=== PATIENT | male | born 1960 | race Caucasian/White ===

== ENCOUNTER → 2020-01-08 16:30 | Outpatient (CLI) | payer SELFPAY | END | disposition home or self-care (01) | LOC: D.LABREF 16:30 | PROVIDERS: ATTEND Orthopaedic Surgery | DX: M17.12 Unilateral primary osteoarthritis, left knee (principal) ==

== ENCOUNTER 2020-01-10 15:45 | Inpatient (IN) | payer BC ==
[~2020-01-10] VITALS: Ht 182.9 cm; Wt 113.6 kg
[2020-01-28] MEDS ORDERED: IMITREX100 MG PO (15:33)
[2020-01-28] MEDS ORDERED: BISOPROLOL-HCT1 EACH PO (15:33)
[2020-01-28] MEDS ORDERED: FLOMAX0.4 MG PO (15:34)
[2020-01-29 10:02] LABS: BASOPHILS 0.2 % (0-2); EOSINOPHILS 1.8 % (0-7); HEMATOCRIT 42.3 % (42.0-54.0); HEMOGLOBIN 13.6 g/dL (13.5-17.5); IMMATURE GRANULOCYTES 0.2 % (0-5); LYMPHOCYTES 22.7 % (15-50); MCH 31.2 pg (26.0-34.0); MCHC 32.2 g/dL (31.0-37.0); MEAN PLATELET VOLUME 9.1 fL (7.4-10.4); NEUTROPHILS 64.1 % (40-80); PLATELET COUNT 183 10x3/uL (130-400); RBC 4.36 10x6/uL (4.20-6.10); RDW 13.1 % (11.5-14.5); WBC 5.1 10x3/uL (4.8-10.8)
[2020-01-29 10:11] LABS: ANION GAP 9.2 mmol/L (8-16); CALCIUM 8.7 mg/dL (8.5-10.1); CARBON DIOXIDE 30.8 mmol/L (21.0-32.0); CREATININE - SERUM 1.2 mg/dL (0.6-1.3)
[2020-01-29 10:14] LABS: APTT 29.1 SECONDS (22.8-39.4); INR 0.97 (0.85-1.17); PROTIME 12.8 SECONDS (11.6-15.0)
[2020-01-29 12:03] LABS: BACTERIA FEW /hpf (NEGATIVE); BILIRUBIN NEGATIVE (NEGATIVE); EPITHELIAL CELLS OCC /hpf (0-5); GLUCOSE NEGATIVE (NEGATIVE); KETONE NEGATIVE (NEGATIVE); NITRITE NEGATIVE (NEGATIVE); RED CELLS - URINE RARE /hpf (0-5); SPECIFIC GRAVITY 1.005 (1.005-1.020); UROBILINOGEN NORMAL (NORMAL); WHITE CELLS - URINE 0-5 /hpf (NEGATIVE)
[2020-02-04] VITALS (12 sets, daily range): BP systolic 101–128; BP diastolic 46–78; Ht 182.9 cm; Wt 113.6 kg
--- NOTE | 2020-02-04 10:50 | NUR ---
PT SITTING UP IN BED. ORIENTATED X4. DROWSY FROM PAIN MEDS GIVEN IN PACU. ABLE TO ANSWER QUESTIONS SLOWLY. PT DENIES ANY PAIN. PT O2 SAT WAS LOW, PLACED ON 2L NC AND THEN ADJUSTED TO 4L NC. CONTACTED RESPIRATORY FOR CONSULT. PT O2 SAT 98 NOW.
--- NOTE | 2020-02-04 13:50 | NUR ---
PT SITTING UP IN BED. ORIETATED X4. SLIGHTLY DROWSY. PT ASKED FOR URINAL, PROVIDED. PT REFUSED LUNCH, STATED HE FELT NAUSEOUS FROM PAIN MEDS. EXPLAINED AND PROVIDED PT WITH ISP, PT EXHALED 2000. BED LOW. BED RAILS X2. PT DENIES FURTHER NEEDS. CL IN REACH, PT VERBALIZED UNDERSTANDING.
--- NOTE | 2020-02-04 18:29 | NUR ---
PT A&O X4. DENIES PAIN. PLACED LEFT LEG IN CPM MACHIENE AT 1830, 45 DEGREES. PT TOLERATED WELL. BED LOW X 2 RAILS. CL IN REACH. WILL CONTINUE TO MONITOR. REPORTED TO NAVAL SURFACE FIRE SUPPORT PLANNER THAT CPM MACHIENE NEEDS TO BE D/C AT 2130.
--- NOTE | 2020-02-04 20:57 | MORECARE ---
CASE MANAGEMENT DISCHARGE SUMMARY PATIENT: BRITTANY ALVAREZ UNIT: [id number] ADM DATE: 02/04/20 AGE: 59 : 62 SEX: M ROOM/BED: D.1207 AUTHOR: ROHITH NIEVES PHYSICIAN: REFERRING PHYSICIAN: ROLA BOYD DO DATE OF SERVICE: 02/04/20 Discharge Plan Patient Name: BRITTANY ALVAREZ Facility: [facility] : 1960 Planned Disposition: Home Anticipated Discharge Date: Discharge Date: Expected LOS: Initial Reviewer: [email or web address] Initial Review Date: 02/04/2020 Generated: 02/04/20 9:57 pm DCPIA - Discharge Planning Initial Assessment Updated by BAL: Kim Crum on 02/04/20 8:56 pm * Is the patient Alert and Oriented? Yes * How many steps to enter\exit or inside your home? * PCP TAMAR * Pharmacy [facility] * Preadmission Environment Home with Family * ADLs Independent * Other Equipment CPAP, CPM, WALKER * List name and contact numbers for known caregivers / representatives who currently or will assist patient after discharge: JUSTINE ALVAREZ -- [phone] * Verbal permission to speak to the caregivers and representatives has been obtained from the patient. Yes * Community resources currently utilized None * Additional services required to return to the preadmission environment? No * Can the patient safely return to the preadmission environment? Yes * Has this patient been hospitalized within the prior 30 days at any hospital? No Coverage Notice Reviewer: [id number] - Kim Crum Notice Issued Date-Time: 02/04/2020 20:51 Notice Type: Patient Choice Letter Notice Delivered To: Family Member Relationship to Patient: Spouse Pile Driving Supervisor Name: JUSTINE ALVAREZ Delivery Method: HAND - Hand Delivered Nanci Days: Prior Verbal Notification: Recipient Understood Notice: Yes Recipient Signature: Yes Med Rec Note Co-signed by Attending: Coverage Notice Comment: [facility] ) FOR OUTPATIENT THERAPY [phone] Patient Name: BRITTANY ALVAREZ Page [phone] at 2057 All edits/amendments must be made on the electronic document DICTATION DATE: 02/04/202056 BEREAVEMENT PROGRAM COORDINATOR: LITTLE 02/04/202056 RPT#: [id number] DC DATE: STATUS: ADM IN [facility] [address] [place] [address] END OF REPORT
--- NOTE | 2020-02-04 21:00 | NUR ---
INTRODUCED SELF TO PT AND LET HIM KNOW THAT I WOULD BE HIS NURSE THIS SHIFT. VS TAKEN. LET HIM KNOW THAT I WOULD BE BACK LATER TO DO AN ASSESSMENT AND TO GIVE MEDS.
--- NOTE | 2020-02-04 21:04 | MORECARE ---
CASE MANAGEMENT DISCHARGE SUMMARY PATIENT: BRITTANY ALVAREZ UNIT: [id number] ADM DATE: 02/04/20 AGE: 59 : 62 SEX: M ROOM/BED: D.1207 AUTHOR: LIZBETH,DOC PHYSICIAN: REFERRING PHYSICIAN: ROLA BOYD DO DATE OF SERVICE: 02/04/20 Discharge Plan Patient Name: BRITTANY ALVAREZ Facility: [facility]:[place] : 1960 Planned Disposition: Home Anticipated Discharge Date: Discharge Date: Expected LOS: Initial Reviewer: [email or web address] Initial Review Date: 02/04/2020 Generated: 02/04/20 10:03 pm Comments DCP- Discharge Planning Updated by [id number]: Kim Crum on 02/04/20 8:[address] Patient Name: BRITTANY ALVAREZ Admission Status: Elective Accout number: [id number] Admission Date: 02-04-2020 : 1960 Admission Diagnosis: Attending: ROLA BOYD Current LOS: 1 Anticipated DC Date: Planned Disposition: Home Primary Insurance: [employer] TRUE BLUE PPO Discharge Planning Comments: CM met with patient to complete initial dc planning assessment. CM educated patient on the CM role and verbal consent given by patient to complete assessment. Patient lives at home with family. Patient is independent. At discharge patient plans to return home and feels this is a safe discharge. CM discussed availability of home health, rehab services, and medical equipment. Patient's spouse stated that they have the CPM and walker delivered. She stated that they would like to go to [facility] for outpatient therapy [phone]. Patient will have family to transport home. Patient denied known discharge needs at this time. CM will continue to follow and will assist as needed with dc plans/needs. Distribution Center Associate: Kim Crum DCPIA - Discharge Planning Initial Assessment Updated by [email or web address]: Kim Crum on 02/04/20 8:56 pm * Is the patient Alert and Oriented? Yes * How many steps to enter\exit or inside your home? * PCP TAMAR * Pharmacy [facility] * Preadmission Environment Home with Family * ADLs Independent * Other Equipment CPAP, CPM, WALKER * List name and contact numbers for known caregivers / representatives who currently or will assist patient after discharge: JUSTINE ALVAREZ -- [phone] * Verbal permission to speak to the caregivers and representatives has been obtained from the patient. Yes * Community resources currently utilized None * Additional services required to return to the preadmission environment? No * Can the patient safely return to the preadmission environment? Yes * Has this patient been hospitalized within the prior 30 days at any hospital? No Coverage Notice Reviewer: [id number] Sharonda Crum Notice Issued Date-Time: 02/04/2020 20:51 Notice Type: Patient Choice Letter Notice Delivered To: Family Member Relationship to Patient: Spouse Strip Presser Name: JUSTINE ALVAREZ Delivery Method: HAND - Hand Delivered Nanci Days: Prior Verbal Notification: Recipient Understood Notice: Yes Recipient Signature: Yes Med Rec Note Co-signed by Attending: Coverage Notice Comment: [facility] ([facility] ) FOR OUTPATIENT THERAPY [phone] Last DP export: 02/04/20 7:57 p Patient Name: BRITTANY ALVAREZ Page [phone] at 2104 All edits/amendments must be made on the electronic document DICTATION DATE: 02/04/202102 BRIDGE OPERATOR SLIP: LITTLE 02/04/202102 RPT#: [id number] DC DATE: STATUS: ADM IN [facility] [address] [place] [address] END OF REPORT
--- NOTE | 2020-02-04 22:00 | NUR ---
ASSESSMENT COMPLETED. PT LEFT KNEE IS WRAPPED IN AN SHANNAN WRAP. NO DRAINAGE NOTED. PT TOES ARE WARM AND HE CAN MOVE THEM. PT HEART SOUNDS ARE WNL. LUNGS SOUND CLEAR. PT IS WEARING O2. I OFFERED TO TAKE IT OFF AND CHECK A PULSE OX BUT HE STATES HE LIKES WEARING THE O2. PT HAS HAD PAIN MEDS DUE TO FEELING BEGINNING TO COME BACK TO HIS LEG. WHEN HE NEEDS MORE PAIN MEDS HE KNOWS TO ASK. CALL LIGHT IS WITHIN REACH. URINAL IS ON THE BEDSIDE TABLE. PT IS USING HIS IS WITH ENCOURAGEMENT.
--- NOTE | 2020-02-04 23:00 | NUR ---
CHECKED ON PT. HE WANTED HIS URINAL EMPTIED AND RINSED OUT. THIS WAS DONE. HE ASKED IF I WOULD HAND HIM THE MASK OF HIS BIPAP AND THIS WAS DONE. HE STATES HE'S READY TO GO TO SLEEP NOW.
--- NOTE | 2020-02-05 00:20 | NUR ---
PT IS RESTING WELL WITH NO C/P HE TOLD ME HIS PAIN LEVEL WAS A ONE. HE KNOWS TO CALL IF HE NEED MORE MEDS. CALL LIGHT WITHIN REACH, URINAL IN REACH, SIDERAILS X2 ELEVATED.
--- NOTE | 2020-02-05 02:00 | NUR ---
PT RESTING WELL IN BED. BIPAP STILL IN PLACE. RESPIRATIONS EVEN AND UNLABORED. O2 STILL IN PLACE. NO C/O OR NEEDS AT THIS JORGE
[2020-02-05 04:00] VITALS: BP 125/66
--- NOTE | 2020-02-05 06:00 | NUR ---
PT IS ON THE CPM. HE WAS MEDICATED BEFORE THE MACHINE WAS ON. HE IS TOLERATING CPM WELL.
--- NOTE | 2020-02-05 06:30 | OP ---
PATIENT NAME: BRITTANY ALVAREZ MEDICAL RECORD: [id number] :62 LOCATION:D. D.1207 ADMISSION DATE:02/04/20 SURGEON: SEBASTIÁN BOYD DO DATE OF OPERATION: 02/04/2020 PROCEDURE PERFORMED: Left total knee arthroplasty. PREOPERATIVE DIAGNOSIS: Left knee osteoarthritis. POSTOPERATIVE DIAGNOSIS: Left knee osteoarthritis. INDICATIONS: Mr. Alvarez patient is a 59-year-old male who has had all manner of nonoperative treatment for his left knee including injections, even PRP injections, to no avail. They did work for a little while, but did not get the lasting effect of them. He came to me and was aware of the risks of getting a total knee, but wanted it done. He is aware of the risks of infection, bleeding, damage to nerves and vessels, need for further surgery, continued pain, blood clots, arthrofibrosis, fracture, failure of implants and even and he signed the consent. SURGEON: Sebastián Boyd DO DESCRIPTION OF PROCEDURE: The patient received block by anesthesia in the preoperative area and taken to the operative suite, laid in supine position, general anesthetic and LMA was placed. He was given 2 grams Ancef, 80 mg of gentamicin and a gram of TXA. The left lower extremity was then prepped and draped in sterile fashion. A timeout was performed and everyone was in agreement with correct site, side, patient, procedure, then marked out the incision and covered in Ioban. We then used a 10 blade scalpel and made careful dissection down to the capsule of the knee and did a medial parapatellar approach through the knee then. We then removed part of the fat pad and milled down the patella. Any bleeding was coagulated with Aquamantys throughout the procedure. Then, once the free fat pad was removed and the patella was milled down. We then flexed the femur into the femoral canal and used the cutting guide for the distal femur. Distal femur was then cut. Proximal tibia was then exposed and cut as well and this was removed, the menisci removed as well. With the knee in extension, the medial one and lateral one was flexed and fit in the 10 extension block fit well. The pins were then removed from the tibia and held the tibial cutting block. Once that was removed, knee was flexed up and the femur sized to be 72.5. A 4-in-1 cutting block was then placed and kari wing was used to ensure there was no notching and then a 4-in-1 cutting block was used to cut the femur, the chamfer cuts and the anterior and posterior cuts. I then placed the trial on and floated in the tibial tray and ranged it. Once we range it, rotation was marked and after the rotation was marked, we drilled for the patellar holes through the guide and the lug holes on the femur. Once the femur was drilled, the tibia was exposed and reamed and punched and external holes put on the tibia with a special tool for the cement. Cement was then mixed and placed in the tibia and on the implants and packed into place. Excess cement was removed. The femur was then impacted on and 10 poly was put in between and brought to extension and then the patella was cleaned out and cement was placed in patella and on the patellar implant. This was squeezed into place. Excess cement was removed from that and the tibia and then the 10% povidone-iodine was used with 500 mL of normal saline solution placed in the knee and set for 3 minutes. It was then irrigated out with over a liter of normal saline. The cement had dried at that point and then we trialed a 12 OPERATIVE REPORT [id number] BRITTANY ALVAREZ poly, 12 poly fit well. We decided to go with a 12 anterior stabilized E-poly. This was put in and locked into place with the locking pin and then irrigated the knee one more time and put in Esther and vancomycin powder. The capsule was then closed with #2 Ethibond in [id number]-mu-aryrs fashion at 4 different spots and then Stravix was used to run a closure on the capsule. 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 So used 2-0 Monocryl in inverted interrupted fashion. Skin and the capsule were closed. Toribio Hunt, certified surgical instrument maker, and Blake Mullen, surgical nurse first aid student. The skin was then closed with 2-0 Monocryl in inverted interrupted fashion, 4-0 Monocryl around the skin and a ZipLine placed on that. He was then dressed with Adaptic, 4 x 4s, ABD, Webril, Jericho wrap and AKIL hose stocking, placed up to the knee. He was then awakened and taken to recovery in stable condition. Blood loss was approximately 200 mL. COMPLICATIONS: None. TRANSINT:[id number] Voice Confirmation ID: [id number] DOCUMENT ID: [id number] SEBASTIÁN BOYD DO at 0630 CC: [id number] DICTATION DATE: 02/04/20941 REFINING MACHINE OPERATOR: 02/04/202056 ADM IN [facility] [id number] [place] [address]
[2020-02-05 08:02] VITALS: BP 120/67
[2020-02-05 08:11] LABS: BASOPHILS 0 % (0-2); EOSINOPHILS 0.3 % (0-7); HEMATOCRIT 33.8 % (42.0-54.0); HEMOGLOBIN 10.7 g/dL (13.5-17.5); IMMATURE GRANULOCYTES 0.2 % (0-5); MCH 30.6 pg (26.0-34.0); MCHC 31.7 g/dL (31.0-37.0); MCV 96.6 fL (80.0-100.0); MEAN PLATELET VOLUME 9.7 fL (7.4-10.4); NEUTROPHILS 75.5 % (40-80); PLATELET COUNT 178 10x3/uL (130-400); RDW 13.6 % (11.5-14.5)
--- NOTE | 2020-02-05 08:15 | NUR ---
PT A&O X 4, SITTING UP IN BED. DENIES PAIN. PIV IN RIGHT HAND, PATENT, INFUSING 1/2 NS @ 50. PT HAS SCD ON RIGHT LEG. LEFT LEG IN CPM MACIENE. REMOVED, DRESSING DRY AND INTACT. EDUCATED PT THAT CPM IS ONLY USED TWICE DAILY FOR 3 HOURS. PT REQUESTED WATER AND COFFE, PROVIDED. PT DENIES FURTHER NEEDS. EDUCATED COLOR CORRECTOR LIGHT. BED LOW RAILS X2. PT VERBALIZED UNDERSTANDING. WILL CONTINUE TO MONITOR.
[2020-02-05 08:31] LABS: ALBUMIN 3.1 g/dL (3.4-5.0); ANION GAP 11.7 mmol/L (8-16); BILIRUBIN - TOTAL 0.38 mg/dL (0.2-1.3); CALCIUM 8.3 mg/dL (8.5-10.1); CARBON DIOXIDE 25.7 mmol/L (21.0-32.0); CREATININE - SERUM 1.1 mg/dL (0.6-1.3); POTASSIUM - SERUM 4.4 mmol/L (3.5-5.1); PROTEIN - SERUM 5.7 g/dL (6.4-8.2)
--- NOTE | 2020-02-05 11:15 | NUR ---
PT SITTING IN BED A&O. C/O PAIN 03/23, ADMIN PAIN MEDS. PT C/O REACTION TO MORNING MEDS, REDNESS IN FACE, ADMINISTERED BENEDRYL PER ORDERS. BED LOW, RAILS X2. CL IN REACH. WILL CONTINUE TO MONITOR.
--- NOTE | 2020-02-05 12:10 | NUR ---
PT SITTING UP IN CHAIR A&O. PT STATES PAIN AT /10. PT AMBULATED 135FT WITH WALKER. O2 SAT STAYED ABOVE 97%. TURNED O2 NC DOWN TO 2L, PT TOLERATED WELL, SATS ABOVE 97%. EDUCATED PT ABOUT NEED FOR URINE SAMPLE, COLLECTED. EDUCATED PT ON CONTINUING USE OF ISP. PT DENIES NEEDS. BED LOW, RAILS X2, WILL CONTINUE TO MONITOR.
[2020-02-05 13:40] LABS: BILIRUBIN NEGATIVE (NEGATIVE); GLUCOSE NEGATIVE (NEGATIVE); KETONE NEGATIVE (NEGATIVE); NITRITE NEGATIVE (NEGATIVE); UROBILINOGEN NORMAL (NORMAL)
--- NOTE | 2020-02-05 14:30 | NUR ---
PT SITTING IN CHAIR. C/O PAIN 02/20. PROVIDED PAIN MEDS. PT DECLINED WALKING WITH PHYSICAL THERAPY UNTIL PAIN UNDER CONTROL. TRANSFERRED PT TO BED. BED LOW RAILS X2. DENIES NEEDS. CL IN REACH. WILL CONTINUE TO MONITOR.
[2020-02-05 16:00] VITALS: BP 124/56
--- NOTE | 2020-02-05 18:53 | NUR ---
PT SITTING UP IN BED. PAIN REPORTED AT 3/10. PT REQUESTED TO WALK. PT WALKED 150FT WITH WALKER. PT TOLERATED WELL. AFTER AMBULATION PT PLACED ON CPM. PT DENIES FURTHER NEEDS. BED LOW, RAILS X2. CL IN REACH. WILL CONTINUE TO MONITOR.
[2020-02-05 20:00] VITALS: BP 116/67
--- NOTE | 2020-02-05 21:09 | NUR ---
PT SITTING UP IN BED A&O X4. REMOVED CPM FROM LEFT LEG. PT C/O PAIN 01/21. ADMIN PAIN MEDS PER ORDER. PT DENIES FURTHER NEEDS. BED LOW, RAILS X2. CL IN REACH. PT VERBALIZED UNDERSTANDING. WILL CONTINUE TO MONITOR.
[2020-02-06 04:00] VITALS: BP 123/69
--- NOTE | 2020-02-06 07:08 | NUR ---
PT IS RESTING IN BED WITH EYES OPEN. RESPIRATIONS ARE EVEN AND UNLABORED. PT IS AAO X 4. CPM IS ON TO LEFT KNEE AND WORKING WITHOUT DIFFICULTY. DRESSING TO LEFT KNEE NOTED AND IS CDI. RIGHT HAND PIV NOTED AND FLUSHES WITHOUT DIFFICULTY. PT DENIES PRESENCE OF NUMBNESS/TINGLING TO LLE. CAP REFILL IS < 3 SECONDS. PT DENIES PRESENCE OF N/V AT THIS TIME. INCENTIVE SPIROMETER AT BEDSIDE AND ENCOURAGED. PT VERBALIZES UNDERSTANDING. BED IS IN THE LOWEST POSITION. CALL LIGHT AND BEDSIDE TABLE ARE WITHIN REACH. SIDE RAILS X 2. PT DENIES FURTHER NEEDS. WILL CONT TO MONITOR.
[2020-02-06] MEDS ORDERED: VISTARIL50 MG PO (07:09)
[2020-02-06] MEDS ORDERED: ELIQUIS2.5 MG PO (07:09)
[2020-02-06] MEDS ORDERED: KEFLEX500 MG PO (07:09)
[2020-02-06] MEDS ORDERED: oxyCODONE IR PO (07:09)
[2020-02-06 07:42] LABS: CALC OSMOLALITY 270 mosm/kg (275-300); CALCIUM 7.9 mg/dL (8.5-10.1); CARBON DIOXIDE 28.1 mmol/L (21.0-32.0); CHLORIDE - SERUM 102 mmol/L (98-107); CREATININE - SERUM 0.9 mg/dL (0.6-1.3); GLUCOSE 117 mg/dL (74-106); POTASSIUM - SERUM 4.1 mmol/L (3.5-5.1); SODIUM 134 mmol/L (136-145); eGFR NON AFRICAN AMERICAN > 90 mL/min (90-120)
[2020-02-06 07:48] LABS: UREA NITROGEN 17 mg/dL (7-18)
[2020-02-06 07:53] LABS: HEMATOCRIT 32.6 % (42.0-54.0); HEMOGLOBIN 10.3 g/dL (13.5-17.5); MCH 30.1 pg (26.0-34.0); MCHC 31.6 g/dL (31.0-37.0); MCV 95.3 fL (80.0-100.0); MEAN PLATELET VOLUME 9.4 fL (7.4-10.4); RBC 3.42 10x6/uL (4.20-6.10); RDW 13.4 % (11.5-14.5); WBC 7.3 10x3/uL (4.8-10.8)
[2020-02-06 08:57] VITALS: BP 146/71
[2020-02-06 12:21] VITALS: BP 133/72
--- NOTE | 2020-02-06 14:20 | NUR ---
DRESSING CHANGED PER ORDER. PT REQUESTS TO LEAVE SHANNAN WRAP OFF "FOR JUST A LITTLE BIT".
--- NOTE | 2020-02-06 14:27 | MORECARE ---
CASE MANAGEMENT DISCHARGE SUMMARY PATIENT: BRITTANY ALVAREZ UNIT: [id number] ADM DATE: 02/04/20 AGE: 59 : 62 SEX: M ROOM/BED: D.1207 AUTHOR: LIZBETH,DOC PHYSICIAN: REFERRING PHYSICIAN: ROLA BOYD DO DATE OF SERVICE: 02/06/20 Discharge Plan Patient Name: BRITTANY ALVAREZ Facility: [facility]:[place] : 1960 Planned Disposition: Home Anticipated Discharge Date: Discharge Date: Expected LOS: Initial Reviewer: [email or web address] Initial Review Date: 02/04/2020 Generated: 02/06/20 3:27 pm Comments DCP- Discharge Planning Updated by [email or web address]: Kim Crum on 02/04/20 8:[address] Patient Name: BRITTANY ALVAREZ Admission Status: Elective Accout number: [id number] Admission Date: 02-04-2020 : 1960 Admission Diagnosis: Attending: ROLA BOYD Current LOS: 1 Anticipated DC Date: Planned Disposition: Home Primary Insurance: [employer] TRUE BLUE PPO Discharge Planning Comments: CM met with patient to complete initial dc planning assessment. CM educated patient on the CM role and verbal consent given by patient to complete assessment. Patient lives at home with family. Patient is independent. At discharge patient plans to return home and feels this is a safe discharge. CM discussed availability of home health, rehab services, and medical equipment. Patient's spouse stated that they have the CPM and walker delivered. She stated that they would like to go to [facility] for outpatient therapy [phone]. Patient will have family to transport home. Patient denied known discharge needs at this time. CM will continue to follow and will assist as needed with dc plans/needs. Prosthetic Aide: Kim Crum DCPIA - Discharge Planning Initial Assessment Updated by [email or web address]: Kim Crum on 02/04/20 8:56 pm * Is the patient Alert and Oriented? Yes * How many steps to enter\exit or inside your home? * PCP TAMAR * Pharmacy [facility] * Preadmission Environment Home with Family * ADLs Independent * Other Equipment CPAP, CPM, WALKER * List name and contact numbers for known caregivers / representatives who currently or will assist patient after discharge: JUSTINE ALVAREZ -- [phone] * Verbal permission to speak to the caregivers and representatives has been obtained from the patient. Yes * Community resources currently utilized None * Additional services required to return to the preadmission environment? No * Can the patient safely return to the preadmission environment? Yes * Has this patient been hospitalized within the prior 30 days at any hospital? No External Providers External Provider: OTHER-OTHER Next Contact Date: Service Request Date: Service Type: Resolution: Reviewer: Comments: Coverage Notice Reviewer: [email or web address] - Kim Crum Notice Issued Date-Time: 02/04/2020 20:51 Notice Type: Patient Choice Letter Notice Delivered To: Family Member Relationship to Patient: Spouse Patient Safety Sitter Name: JUSTINE ALVAREZ Delivery Method: HAND - Hand Delivered Nanci Days: Prior Verbal Notification: Recipient Understood Notice: Yes Recipient Signature: Yes Med Rec Note Co-signed by Attending: Coverage Notice Comment: [facility] ) FOR OUTPATIENT THERAPY [phone] Last DP export: 02/04/20 8:04 p Patient Name: BRITTANY ALVAREZ Page [phone] at 1427 All edits/amendments must be made on the electronic document DICTATION DATE: 02/06/201426 BOLT HEADER: LITTLE 02/06/20 142 RPT#: [id number] DC DATE: STATUS: ADM IN [facility] [address] [place] [address] END OF REPORT
--- NOTE | 2020-02-06 14:36 | MORECARE ---
CASE MANAGEMENT DISCHARGE SUMMARY PATIENT: BRITTANY ALVAREZ UNIT: [id number] ADM DATE: 02/04/20 AGE: 59 : 62 SEX: M ROOM/BED: D.1207 AUTHOR: LIZBETH,DOC PHYSICIAN: REFERRING PHYSICIAN: ROLA BOYD DO DATE OF SERVICE: 02/06/20 Discharge Plan Patient Name: BRITTANY ALVAREZ Facility: [facility]:[place] : 1960 Planned Disposition: Home Anticipated Discharge Date: Discharge Date: Expected LOS: Initial Reviewer: [email or web address] Initial Review Date: 02/04/2020 Generated: 02/06/20 3:35 pm Comments DCP- Discharge Planning Updated by [email or web address]: Raven Burris on 02/06/20 1:[address] CM called [facility] to schedule patient's Outpatient Physical Therapy in anticipation of possible discharge tomorrow. Patient is to arrive at [facility] ([address] [place] [address]) Monday at 13:00 for 13:15 appointment. CM informed patient who verbalized understanding and satisfaction with discharge plan. CM informed nurse of plan. CM faxed records to [facility] as requested. CM will continue to follow and assist as needed with DCP needs. DCP- Discharge Planning Updated by [id number]: Kim Crum on 02/04/20 8:[address] Patient Name: BRITTANY ALVAREZ Admission Status: Elective Accout number: [id number] Admission Date: 02-04-2020 : 1960 Admission Diagnosis: Attending: ROLA BOYD Current LOS: 1 Anticipated DC Date: Planned Disposition: Home Primary Insurance: [employer] TRUE BLUE PPO Discharge Planning Comments: CM met with patient to complete initial dc planning assessment. CM educated patient on the CM role and verbal consent given by patient to complete assessment. Patient lives at home with family. Patient is independent. At discharge patient plans to return home and feels this is a safe discharge. CM discussed availability of home health, rehab services, and medical equipment. Patient's spouse stated that they have the CPM and walker delivered. She stated that they would like to go to [facility] for outpatient therapy [phone]. Patient will have family to transport home. Patient denied known discharge needs at this time. CM will continue to follow and will assist as needed with dc plans/needs. Industrial Sewer: Kim Crum DCPIA - Discharge Planning Initial Assessment Updated by [email or web address]: Kim Crum on 02/04/20 8:56 pm * Is the patient Alert and Oriented? Yes * How many steps to enter\exit or inside your home? * PCP BOYLE * Pharmacy [facility] * Preadmission Environment Home with Family * ADLs Independent * Other Equipment CPAP, CPM, WALKER * List name and contact numbers for known caregivers / representatives who currently or will assist patient after discharge: JUSTINE ALVAREZ -- [phone] * Verbal permission to speak to the caregivers and representatives has been obtained from the patient. Yes * Community resources currently utilized None * Additional services required to return to the preadmission environment? No * Can the patient safely return to the preadmission environment? Yes * Has this patient been hospitalized within the prior 30 days at any hospital? No Coverage Notice Reviewer: [id number] - Kim Crum Notice Issued Date-Time: 02/04/2020 20:51 Notice Type: Patient Choice Letter Notice Delivered To: Family Member Relationship to Patient: Spouse Fire Alarm Installer Name: JUSTINE ALVAREZ Delivery Method: HAND - Hand Delivered Nanci Days: Prior Verbal Notification: Recipient Understood Notice: Yes Recipient Signature: Yes Med Rec Note Co-signed by Attending: Coverage Notice Comment: [facility] FOR OUTPATIENT THERAPY [phone] Last DP export: 02/06/20 1:27 p Patient Name: BRITTANY ALVAREZ Page [phone] at 1436 All edits/amendments must be made on the electronic document DICTATION DATE: 02/06/201434 INSPECTOR ELEVATORS: LITTLE 02/06/20 143 RPT#: [id number] DC DATE: STATUS: ADM IN [facility] [address] [place] [address] END OF REPORT
[2020-02-06 16:37] VITALS: BP 137/68
--- NOTE | 2020-02-06 16:45 | NUR ---
SMALL AMOUNT OF BLOODY DRAINAGE NOTED TO LLE DRESSING. DRESSING CHANGED. PT TOLERATED WELL. PT SITTING IN BEDSIDE CHAIR AAO X 4. RESPIRATIONS ARE EVEN AND UNLABORED. INCENTIVE SPIROMETER WITHIN REACH AND ENCOURAGED. PT VERBALIZES UNDERSTANDING. PT DENIES FURTHER NEEDS. WILL CONT TO MONITOR.
--- NOTE | 2020-02-06 18:20 | NUR ---
ALL DISCHARGE INSTRUCTIONS COVERED WITH PT AND PT SPOUSE. (4) PRINTED RX GIVEN TO PT. PT DENIES FURTHER QUESTIONS/CONCERNS/COMMENTS AT THIS TIME. PIV TO LEFT HAND REMOVED WITH CATHETER TIP INTACT. DRESSING APPLIED. PT GIVEN (5) EXTRA DRESSING SUPPLIES AND AKIL HOSE FOR HOME CARE. PT STATES THAT HE IS READY FOR TRANSPORT FROM ROOM. PT TRANSPORTED FROM ROOM VIA WHEELCHAIR. PT STATES THAT HE HAS ALL PERSONAL BELONGINGS AND THANKS THIS NURSE FOR CARE GIVEN DURING THIS SHIFT. PT DENIES FURTHER QUESTIONS/CONCERNS/NEEDS.
--- NOTE | 2020-02-06 22:30 | MORECARE ---
CASE MANAGEMENT DISCHARGE SUMMARY PATIENT: BRITTANY ALVAREZ UNIT: [id number] ADM DATE: 02/04/20 AGE: 59 : 62 SEX: M ROOM/BED: D.1207 AUTHOR: LIZBETH,DOC PHYSICIAN: REFERRING PHYSICIAN: ROLA BOYD DO DATE OF SERVICE: 02/06/20 Discharge Plan Patient Name: BRITTANY ALVAREZ Facility: [facility]:[place] : 1960 Planned Disposition: Home Anticipated Discharge Date: Discharge Date: 02/06/2020 Expected LOS: Initial Reviewer: [email or web address] Initial Review Date: 02/04/2020 Generated: 02/06/20 11:30 pm Comments DCP- Discharge Planning Updated by [email or web address]: Raven Burris on 02/06/20 1:[address] CM called [facility] to schedule patient's Outpatient Physical Therapy in anticipation of possible discharge tomorrow. Patient is to arrive at [facility]'s ([address] [place] [address]) Monday at 13:00 for 13:15 appointment. CM informed patient who verbalized understanding and satisfaction with discharge plan. CM informed nurse of plan. CM faxed records to [facility] as requested. CM will continue to follow and assist as needed with DCP needs. DCP- Discharge Planning Updated by [email or web address]: Kim Crum on 02/04/20 8:[address] Patient Name: BRITTANY ALVAREZ Admission Status: Elective Accout number: [id number] Admission Date: 02-04-2020 : 1960 Admission Diagnosis: Attending: ROLA BOYD Current LOS: 1 Anticipated DC Date: Planned Disposition: Home Primary Insurance: BLUE CROSS TRUE BLUE PPO Discharge Planning Comments: CM met with patient to complete initial dc planning assessment. CM educated patient on the CM role and verbal consent given by patient to complete assessment. Patient lives at home with family. Patient is independent. At discharge patient plans to return home and feels this is a safe discharge. CM discussed availability of home health, rehab services, and medical equipment. Patient's spouse stated that they have the CPM and walker delivered. She stated that they would like to go to [facility] for outpatient therapy [phone]. Patient will have family to transport home. Patient denied known discharge needs at this time. CM will continue to follow and will assist as needed with dc plans/needs. Inspector Filter Tip: Kim Crum DCPIA - Discharge Planning Initial Assessment Updated by [email or web address]: Kim Crum on 02/04/20 8:56 pm * Is the patient Alert and Oriented? Yes * How many steps to enter\exit or inside your home? * PCP BOYLE * Pharmacy [facility] * Preadmission Environment Home with Family * ADLs Independent * Other Equipment CPAP, CPM, WALKER * List name and contact numbers for known caregivers / representatives who currently or will assist patient after discharge: JUSTINE ALVAREZ -- [phone] * Verbal permission to speak to the caregivers and representatives has been obtained from the patient. Yes * Community resources currently utilized None * Additional services required to return to the preadmission environment? No * Can the patient safely return to the preadmission environment? Yes * Has this patient been hospitalized within the prior 30 days at any hospital? No Coverage Notice Reviewer: [email or web address] - Kim Crum Notice Issued Date-Time: 02/04/2020 20:51 Notice Type: Patient Choice Letter Notice Delivered To: Family Member Relationship to Patient: Spouse Drug Worker Name: JUSTINE ALVAREZ Delivery Method: HAND - Hand Delivered Nanci Days: Prior Verbal Notification: Recipient Understood Notice: Yes Recipient Signature: Yes Med Rec Note Co-signed by Attending: Coverage Notice Comment: [facility] ([facility] ) FOR OUTPATIENT THERAPY [phone] Last DP export: 02/06/20 1:36 p Patient Name: BRITTANY ALVAREZ Page [id number] at 2230 All edits/amendments must be made on the electronic document DICTATION DATE: 02/06/202229 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
== END 2020-02-06 18:49 | disposition home or self-care (01) | DRG 470 ==
LOC: D.SDCHOLD 02-04 05:15 → D.M3 02-04 05:15 → D.SDCHOLD 02-04 07:00 → D.M3 02-04 08:47 → D.SDCHOLD 02-04 10:00 → D.M3 02-06 18:49
PROVIDERS: Family Medicine; ADMIT Orthopaedic Surgery; ATTEND Orthopaedic Surgery
PROC: 0SRD0J9 Replacement of Left Knee Joint with Synthetic Substitute, Cemented, Open Approach (ICD-10-PCS; principal; 2020-02-04 07:30)
DX: M17.12 Unilateral primary osteoarthritis, left knee (principal); I10 Essential (primary) hypertension; I25.10 Atherosclerotic heart disease of native coronary artery without angina pectoris; G47.33 Obstructive sleep apnea (adult) (pediatric)